=== PATIENT | female | born 1965 | race Caucasian/White ===

== ENCOUNTER 2023-02-26 09:21 | Outpatient (CLI) | payer BC, SELFPAY ==
[2023-02-26 12:03] LABS: Alanine Aminotransferase 32 U/L (6-35); Albumin Level 4.2 g/dL (3.5-5.1); Alkaline Phosphatase 66 U/L (38-126); Anion Gap 7 mmol/L (8-16); Aspartate Amino Transferase 30 U/L (14-36); Bilirubin,Total 0.7 mg/dL (0.2-1.3); Blood Urea Nitrogen 17 mg/dL (7-17); Calcium 9.2 mg/dL (8.4-10.2); Carbon Dioxide 29 mmol/L (22-30); Chloride 103 mmol/L (98-107); Cholesterol 290 mg/dL (0-200); Estimated Glomerular Filt Rate > 60; Glucose 109 mg/dL (65-110); HDL Direct 70 mg/dL; Sodium 139 mmol/L (137-145); Triglycerides 155 mg/dL (<150)
[2023-02-26 12:14] LABS: LDL Cholesterol Direct 169 mg/dL
== END 2023-02-26 09:22 | disposition home or self-care (01) ==
LOC: ANHLAB 09:23
PROVIDERS: PCP Nurse Practitioner; Visit Provider Internal Medicine Endocrinology, Diabetes & Metabolism
DX: E03.9 Hypothyroidism, unspecified (principal); R73.03 Prediabetes
CPT/HCPCS: 36415; 80053; 80061; 82607; 84439; 84443

== ENCOUNTER 2023-09-17 08:09 | Outpatient (CLI) | payer BC, SELFPAY ==
[2023-09-17 09:55] LABS: Cholesterol 150 mg/dL (0-200); HDL Direct 59 mg/dL; Triglycerides 119 mg/dL (<150)
[2023-09-17 10:05] LABS: Free T4 Free Thyroxine 1.42 ng/mL (0.78-2.19); Vitamin D 25 Hydroxy 62.5 ng/mL
[2023-09-17 10:07] LABS: LDL Cholesterol Direct 82 mg/dL
[2023-09-17 10:24] LABS: Thyroid Stimulating Hormone 0.337 uIU/mL (0.465-4.680)
== END 2023-09-17 08:10 | disposition home or self-care (01) ==
PROVIDERS: PCP Nurse Practitioner; Visit Provider Internal Medicine Endocrinology, Diabetes & Metabolism
DX: E03.9 Hypothyroidism, unspecified (principal); E78.5 Hyperlipidemia, unspecified; R79.89 Other specified abnormal findings of blood chemistry; R73.03 Prediabetes
CPT/HCPCS: 36415; 80061; 82306; 84439; 84443

== ENCOUNTER 2024-07-04 07:14 | Outpatient (CLI) | payer BC, SELFPAY ==
--- OUTSIDE RECORDS SUMMARY | 2024-07-04 07:17 | XMS_ITS | Clinical Summary ---
Author Organization [facility] Care Team Providers Care Broadband Technician Name Role Phone Unavailable Primary Care Provider Unavailabl e Social History Tobacco Use Types Packs/Day Years Used Date Smoking Tobacco: Never Assessed Comments Unknown Sex and Gender Information Value Date Recorded Sex Assigned at Not on file Legal Sex Female 9:23 AM CDT Gender Identity Not on file Sexual Orientation Not on file Plan of Treatment Health Maintenance Due Date Last Done Comments Hepatitis C Virus (HCV) Screening 1965 TdaP Immunization 1965 Hepatitis B Immunization (1 of 3 - 19+ 3-dose series) 01/10/1984 Pap Smear 1986 Cervical Cancer Screening (CCS) 1995 HPV/Cotest 1995 Colonoscopy 2010 Colorectal Cancer Screening 2010 Cologuard 2015 Immunochemical Fecal Occult Blood 2015 Mammogram 2015 Pneumococcal Immunization (5 0+ years) (1 of 1 - PCV) 2015 Zoster Immunization (1 of 2) 2015 Influenza Immunization (#1) 2024 02/23/2019 SARS-COV-2 Immunization ( - 2023- season) 2024 Respiratory Syncytial Virus (RSV) Immunization (Adult) (1 - 1-dose 75+ series) 01/10/2040 Meningococcal Immunization (ACWY) Aged Out No longer eligible based on patient's age to complete this topic Pneumococcal Immunization Combined Aged Out No longer eligible based on patient's age to complete this topic Rotavirus Immunization Aged Out No lo nger eligible based on patient's age to complete this topic
--- OUTSIDE RECORDS SUMMARY | 2024-07-04 07:17 | XMS_ITS | Clinical Summary ---
Author Organization [facility] Address [address] [place] [address] Care Team Providers Care Talent Manager Name Role Phone Michael Smith TARYN Primary Care Provider [phone] Hima Del Valle MD Unavailable [phone] Allergies No known active allergies Medications ferrous gluconate 324 (37.5 Fe) MG tablet Take 1 tablet (324 mg total) by mouth daily with breakfast. Active Ergocalciferol (VITAMIN D OR) Take 1 tablet by mouth daily. Active multi vitamin/minerals tablet Take 1 tablet by mouth daily. Active Krill Oil 350 MG Cap Take 1 tablet by mouth daily. Active levothyroxine (SYNTHROID) 100 MCG tabletIndication s:Hypothyroidism , unspecified type Take 1 tablet (100 mcg total) by mouth every morning. 30 tablet 2 0 Active metFORMIN ER 500 MG 24 hr tablet 1 Active methylPREDNISolo RUTH ANN boland, (MEDROL DOSEPAK) 4 MG tabletIndication s:Allergic contact dermatitis due to plants, except food 6 TABLETS ON DAY ONE, 5 TABLETS DAY TWO, 4 TABLETS DAY THREE, 3 TABLETS DAY FOUR, 2 TABLETS DAY FIVE, AND 1 TABLET DAY SIX 1 each 3 Active triamcinolone (KENALOG) 0.1 % creamIndications :Irritant contact dermatitis due to plants, except food Apply topically 2 (two) times daily. 45 g 1 3 Active sertraline (ZOLOFT) 100 MG tabletIndication s:Anxiety Take 1 tablet (100 mg total) by mouth daily. 90 tablet 3 4 Active omeprazole (PRILOSEC) 20 MG capsuleIndicatio ns:Heartburn Take 1 capsule (20 mg total) by mouth daily. 90 capsule 4 Active Active Problems Problem Noted Date Diagnosed Date Heartburn 11/03/2022 Overview (11/03/2022): Added automatically from request for surgery [id number] Regurgitation and rechewing 11/03/2022 Overview (11/03/2022): Added automatically from request for surgery [id number] Screening for colon cancer 07/29/2022 Overview (07/29/2022): Added automatically from request for surgery [id number] Class 1 obesity due to exces s calories without serious comorbidity with body mass index (BMI) of 34.0 to 34.9 in adult 04/06/2019 Pure hypercholesterolemia 04/06/2019 Elevated blood pressure reading 04/06/2019 Hypothyroidism, unspecified type 04/06/2019 Abnormal findings on diagnostic imaging of breas t 01/19/2014 Immunizations Name Administration Dates Next Due Fluzone 6 Months+ Quad (0.5 mL Prefilled Syringe ) 05/29/2022,02/23/2019 Influenza Adult (Generic) 02/23/2019 Tdap (Adacel) 05/29/2022 Family History Medical History Relation Comments Actinic keratosis Brother 1 Actinic keratosis Brother 2 Cancer Father skin Heart Disease Father Relation Status Comments Brother 1 Alive Brother 2 Alive Brother 3 Alive Father (Age 80) Mother (Age 82) Social History Tobacco Use Types Packs/Day Years Used Date Smoking Tobacco: Never Smokeless Tobacco: Never Tobacco Cessation:Counseling Given: No Alcohol Use Standard Drinks/Week Comments No 0 (1 standard drink = 0.6 oz pur e alcohol) AUDIT-C Answer Date Recorded Frequency of Alcohol Consumption Never 02/08/2019 Average Number of Drinks Not on file 019 Frequency of Binge Drinking Not on file 01/23 PHQ-2 Answer Date Recorded Patient Health Questionnaire-2 Score 0 05/29/2022 Comments No Sex and Gender Information Value Date Recorded Sex Assigned at Not on file Legal Sex Female 2:42 PM CDT Gender Identity Not on file Sexual Orientation Not on file Last Filed Vital Signs Vital Sign Reading Time Taken Comments Blood Pressure 122/78 02/06/2023 10:04 AM CDT Pulse 74 02/06/2023 10:04 AM CDT Temperature 36.9 C (98.4 F) 02/06/2023 10:04 AM CDT Respiratory Rate 20 02/06/2023 10:04 AM CDT Oxygen Saturation 98% 02/06/2023 10:04 AM CDT Inhaled Oxygen Concentration - - Weight 87.5 kg (193 lb) 02/06/2023 10:04 AM CDT Height 157.5 cm (5' 2 ) 02/06/2023 10:04 AM CDT Body Mass Index 35.3 02/06/2023 10:04 AM CDT Plan of Treatment Health Maintenance Due Date Last Done Comments Hepatitis C 1983 Zoster Vaccines (1 of 2) 2015 Cervical Cancer Screening Pap Smear (Age 30 to 64) Every 3 Years 03/17/2022 03/17/2019 Annual Physical 05/29/2023 05/29/2022, 11/23, 03/17/2019, Additional history exists COVID-19 Vaccine ( season) 2024 Influenza Adult (#1) 2024 05/29/2022, 02/23/2019, 02/23/2019 Cervical Cancer Screening Pap with HPV Testing (Age 30 to 64) Every 5 Years 03/17/2024 03/17/2019 Cervical Cancer Screening with HPV 03/17/2024 PHQ-2 (Physician [place]) 05/25/2024 Mammogram Screening 07/15/2024 07/15/2022, 9 DTaP, Tdap and Td Vaccines (2 - Td or Tdap) 05/29/2032 05/29/2022 Colorectal Cancer Screening Colonoscopy (10 Years) 12/29/2032 12/29/2022, 12/29/2022 Meningococcal B Vaccine Aged Out No l onger eligible based on patient's age to complete this topic Meningococcal Vaccine Aged Out No catina sky eligible based on patient's age to complete this topic Pneumococcal Vaccine: Pediatrics (0 to 5 Years) and At-Risk Patients (6 to 64 Years) Aged Out No longer eligible based on patient's age to complete this topic RSV Immunizations Under 20 Months Aged Out No longer eligible based on patient's age to complete this topic Procedures Procedure Name Priority Date/Time Associated Diagnosis Comments COLONOSCOPY Routine 12/29/2022 10:14 AM CDT MG SCREENING W MARYSOL J LUIS DIGI Routine 07/15/2022 10:48 AM SETTLEMENT CLERK Encounter for screening mammogram for malignant neoplasm of breast HPV MRNA E6/E7 Routine 03/17/2019 2:51 PM CDT CYTOPATH CERV/VAG THIN LAYER Routine 03/17/2019 12:00 AM CDT from Last 3 Months or Most Recently Relevant to Health Maintenance Results * MG SCREENING W MARYSOL J LUIS DIGI (07/15/2022 10:48 AM SETTLEMENT CLERK) Anatomical Region Laterality Modality Breast Bilateral Mammography 07/15/2022 4:31 PM SETTLEMENT CLERK Narrative 07/15/2022 4:34 PM SETTLEMENT CLERK Examination: Screening bilateral mammogram Exam Date: 07/15/2022 10:30 AM Clinical history: Routine screening. Comparison: 03/01/2019 , 07/31/2014, 01/30/2014 Technique: Digital screening mammography of both breasts was performed. Breast tomosynthesis acquisitions were obtained and reviewed. This study was read with the assistance of a computer-aided detection system. Tissue density: There are scattered areas of fibroglandular density. Findings: Scattered benign-appearing calcifications are noted. No suspicious masses, malignant appearing calcifications, skin thickening or other abnormalities are present. No significant change from the prior exam. IMPRESSION: No suspicious mammographic findings. Recommendation: 1. Routine Screening, Bilateral Assessment: ACR BI-RADS 2 - BENIGN FINDING(S) Ordered By: MICHAEL SMITH Interpreted By: Cleve Call MD, 07/15/2022 4:31 PM us Michael Smith OPERATIONS AND MAINTENANCE TECHNICIAN MAMMO Final Result * HPV MRNA E6/E7 (03/17/2019 2:51 PM CDT) HPV MRNA E6/E7 Not Detected NOT DETECTED 03/24/2019 11:37 PM CDT Bagel Nash FIDELIA THOMAS Comment: This test was performed using the APTIMA(R) HPV Assay ([employer] This assay detects E6/E7 viral messenger RNA (mRNA) from 14 high-risk HPV types (16,18,31,33,35,39,45,51, 52,56,58,59,66,68). For additional information please refer to: http://education.DonorsPlay/faq/GYV430g8 (This link is being provided for informational/ educational purposes only.) The analytical performance characteristics of this assay have been determined by [facility] [place], [place]. The modifications have not been cleared or approved by the FDA. This assay has been validated pursuant to the CLIA regulations and is used for clinical purposes. Test Performed by [facility] [place], [facility], [address] [place] [address] Osmar Rosario M.D., Ph.D., Director of Laboratories , CLIA [id number] 03/17/2019 2:51 PM CDT us Michael Smith OPERATIONS AND MAINTENANCE TECHNICIAN PATHOLOGY/CYTOLOGY ORDERABLES F inal Result Bagel Nash [address] , * Cytopath Cerv/Vag Thin Layer (03/17/2019 12:00 AM CDT) Pathologist [facility] COPATH REPORT [place] [phone] Department of Pathology Pathology Report Gynecological Cytology Report Patient Name: AISSATOU MCCONNELL : 1965 (Age: 54) Location: [facility] Gender: F Collected Date: 03/17/2019 Med Rec #: [id number] Date Received: 03/18/2019 Date Reported: 03/25/2019 Provider: MICHAEL SMITH NP Final Cytologic Diagnosis Satisfactory for evaluation. Endocervical component present. Negative for Intraepithelial Lesion or Malignancy. Atrophic pattern. High-risk HPV mRNA E6/E7 by Aptima assay (performed at [facility]) is reported as NOT DETECTED (see separate report for details). Electronically Signed Out By Ish Siddiqui Source of Specimen(s) Cervical/Vaginal, Thin Prep Clinical History Screening, last Pap not provided. Z01.419 Date of Last Menstrual Period: not provided Billing Fee Code(s): A: 70017 [facility] 03/17/2019 03/18/2019 11: 39 AM CDT Comment:CERVICAL/VAGINAL, TH IN PREP us Michael Smith NP PATHOLOGY/CYTOLOGY ORDERABLES F inal Result [facility] [address] [place] [address], from Last 3 Months or Most Recently Relevant to Health Maintenance [place] [address] [address] [address] Care Teams Talent Manager Relationship Specialty Start Date End Date Michael Smith NP [address] [place] [address] PCP - General NURSE PRACTITIONER 02/07/19 Hima Del Valle MD [address] [facility] [address] [place] [address] [place] House Cleaner Supervisor CARDIOVASCULAR DISEASE 03/21/19
[2024-07-04 08:23] LABS: Alanine Aminotransferase 27 U/L (6-35); Albumin Level 4.4 g/dL (3.5-5.1); Alkaline Phosphatase 82 U/L (38-126); Anion Gap 10 mmol/L (4-12); Aspartate Amino Transferase 26 U/L (14-36); Bilirubin,Total 0.6 mg/dL (0.2-1.3); Blood Urea Nitrogen 15 mg/dL (7-17); Calcium 9.6 mg/dL (8.4-10.2); Carbon Dioxide 27 mmol/L (22-30); Chloride 104 mmol/L (98-107); Cholesterol 155 mg/dL (0-200); Estimated Glomerular Filt Rate > 60; Glucose 118 mg/dL (65-110); HDL Direct 64 mg/dL; Potassium 4.4 mmol/L (3.4-5.0); Sodium 141 mmol/L (137-145); Triglycerides 100 mg/dL (<150)
[2024-07-04 08:34] LABS: LDL Cholesterol Direct 74 mg/dL
[2024-07-04 09:24] LABS: Free T4 Free Thyroxine 1.25 ng/dL (0.78-2.19); Vitamin D 25 Hydroxy 49.7 ng/mL
== END 2024-07-04 07:15 | disposition home or self-care (01) ==
LOC: ANHLAB 07:16
PROVIDERS: PCP Nurse Practitioner; Visit Provider Internal Medicine Endocrinology, Diabetes & Metabolism
DX: R73.03 Prediabetes (principal); E78.5 Hyperlipidemia, unspecified; R79.89 Other specified abnormal findings of blood chemistry; E03.9 Hypothyroidism, unspecified
CPT/HCPCS: 36415; 80053; 80061; 82306; 82607; 84439; 84443

== ENCOUNTER 2025-01-09 09:19 | Outpatient (CLI) | payer BC, SELFPAY ==
--- OUTSIDE RECORDS SUMMARY | 2025-01-09 10:04 | XMS_ITS | Clinical Summary ---
Author Organization [facility] Care Team Providers Care Early Morning Name Role Phone Unavailable Primary Care Provider [...] Cervical Cancer Screening (CCS) 1995 HPV/Cotest 1995 Cologuard 2010 Colonoscopy 2010 Colorectal Cancer Screening 2010 Immunochemical Fecal Occult Blood 2010 Pneumococcal Immunization (5 0+ years) (1 of 1 - PCV) 2015 Zoster Immunization (1 of 2) 2015 SARS-COV-2 Immunization ( - season) 2024 Influenza Immunization (#1) 2025 02/23/2019 Respiratory Syncytial Virus (RSV) Immunization (Adult) (1 - 1-dose 75+ series) 01/10/2040 Human Papillomavirus (HPV) Immunization Aged Out No longer eligible b ased on patient's age to complete this topic Meningococcal Immunization (ACWY) Aged Out No longer eligible based on patient's age to complete this topic Rotavirus Immunization Aged Out No lo nger eligible based on patient's age to complete this topic
[2025-01-09 10:54] LABS: Thyroid Stimulating Hormone 0.172 uIU/mL (0.465-4.680)
[2025-01-09 11:21] LABS: Hemoglobin A1C 5.9 % (<5.7)
== END 2025-01-09 09:20 | disposition home or self-care (01) ==
LOC: ANHLAB 09:20
PROVIDERS: PCP Nurse Practitioner; Visit Provider Internal Medicine Endocrinology, Diabetes & Metabolism
DX: R73.03 Prediabetes (principal); E03.9 Hypothyroidism, unspecified
CPT/HCPCS: 36415; 83036; 84443